=== PATIENT | female | born 1945 | race African-American/Black ===

== ENCOUNTER 2021-12-14 16:12 | Inpatient (IN) | payer OTHER, MEDICAID ==
[~2021-12-14] VITALS: Ht 160 cm; Wt 73.5 kg
[2021-12-14 16:57] LABS: BASOPHILS % 0.4 % (0.0-2.0); HEMATOCRIT. 33.3 % (36.0-48.0); HEMOGLOBIN. 11.5 g/dL (12.0-16.0); LYMPHOCYTES % 14.5 % (20.0-50.0); MEAN CORPUSCULAR HEMOGLOBIN 31.6 pg (28.0-32.0); MEAN CORPUSCULAR VOLUME 91.7 fL (81.0-99.0); MEAN PLATELET VOLUME 8.4 fl (7.4-10.4); NEUTROPHILS % 79.1 % (40.0-76.0); PLATELET 259 x1000/uL (130-400); RED BLOOD CELL COUNT 3.64 mill/uL (4.2-5.4); RED CELL DISTRIBUTION WIDTH 14.5 % (11.6-14.6)
[2021-12-14 17:04] LABS: CHLORIDE 108 mEq/L (98-107)
[2021-12-14 19:04] LABS: CLARITY URINE CLEAR (CLEAR); COLOR URINE DARK YELLOW (YELLOW); KETONES URINE NEGATIVE (NEGATIVE); LEUKOCYTE ESTERASE URINE 1+ (NEGATIVE); NITRITE URINE NEGATIVE (NEGATIVE); OCCULT BLOOD URINE NEGATIVE (NEGATIVE); PH URINE 5.5 (4.5-8.0); PROTEIN URINE NEGATIVE (NEGATIVE); SPECIFIC GRAVITY URINE 1.015 (1.005-1.030)
[2021-12-14] MEDS ORDERED: CEFTRIAXONE 1 G PREMIX 50 ML IV NR (21:00)
[2021-12-14 23:00] VITALS: BP 152/82
[2021-12-15] VITALS: BP 145/75
[2021-12-15 04:00] VITALS: BP 138/72
[2021-12-15] MEDS ORDERED: TOPUD MT (04:20)
[2021-12-15] MEDS ORDERED: AZAT50TA24 MT (04:26)
[2021-12-15] MEDS ORDERED: DOCU-150 PO (04:28)
[2021-12-15] MEDS ORDERED: ACETAMINOPHEN 325MG TABLET PO PRN (04:30)
[2021-12-15] MEDS ORDERED: BISA10SU62 RC ×2 (04:30)
[2021-12-15] MEDS ORDERED: BISACODYL 10MG SUPP RC PRN (04:30)
[2021-12-15] MEDS ORDERED: MINERAL OIL ENEMA 133ML PR PRN (04:30)
[2021-12-15] MEDS ORDERED: MAGNESIUM HYDROXIDE 400MG/5ML 30ML UDC PO PRN (04:30)
[2021-12-15] MEDS ORDERED: ONDANSETRON 4MG ODT PO PRN (04:30)
[2021-12-15] MEDS ORDERED: FERR325T6 MT (04:32)
[2021-12-15] MEDS ORDERED: FISH MT (04:33)
[2021-12-15] MEDS ORDERED: FEO PR (04:35)
[2021-12-15] MEDS ORDERED: MELA5TAB21 PO (04:41)
[2021-12-15] MEDS ORDERED: MULT-1146 MT (04:41)
[2021-12-15] MEDS ORDERED: GABA-529 PO (04:41)
[2021-12-15] MEDS ORDERED: MOM PO (04:41)
[2021-12-15] MEDS ORDERED: PRED2.5T4 MT (04:43)
[2021-12-15] MEDS ORDERED: ONDA4TAB11 PO (04:43)
[2021-12-15] MEDS ORDERED: RIVA20TA MT (04:47)
[2021-12-15] MEDS ORDERED: ROSU5TAB PO (04:47)
[2021-12-15] MEDS ORDERED: SENN-257 MT (04:47)
[2021-12-15 08:00] VITALS: BP 159/77
[2021-12-15 08:09] LABS: BASOPHILS % 0.6 % (0.0-2.0); EOSINOPHILS % 3.4 % (0.0-5.0); HEMATOCRIT. 31.4 % (36.0-48.0); LYMPHOCYTES % 18.6 % (20.0-50.0); MEAN CORPUSCULAR HEMOGLOBIN 31.9 pg (28.0-32.0); MEAN CORPUSCULAR VOLUME 91.1 fL (81.0-99.0); MEAN PLATELET VOLUME 8.4 fl (7.4-10.4); MONOCYTES % 7.7 % (2.0-8.0); NEUTROPHILS % 69.7 % (40.0-76.0); PLATELET 236 x1000/uL (130-400); RED BLOOD CELL COUNT 3.44 mill/uL (4.2-5.4); RED CELL DISTRIBUTION WIDTH 14.6 % (11.6-14.6)
[2021-12-15] MEDS: FISH OIL/OMEGA-3 FATTY ACIDS 1000MG CAPSULE PO SCH (08:18)
[2021-12-15] MEDS: AZATHIOPRINE 50MG TABLET PO SCH (08:19)
[2021-12-15] MEDS: SENNOSIDES 8.6MG TABLET PO SCH (08:20)
[2021-12-15] MEDS: MULTIVITAMINS,THER W-MINERALS TABLET PO SCH (08:20)
[2021-12-15] MEDS: GABAPENTIN 100MG CAPSULE PO SCH ×2 (08:20→17:10)
[2021-12-15] MEDS: FERROUS SULFATE 325MG TABLET PO SCH (08:20)
[2021-12-15] MEDS: PREDNISONE 5MG TABLET PO SCH (08:21)
[2021-12-15] MEDS: DOCUSATE SODIUM 100MG CAPSULE PO SCH (08:21)
[2021-12-15 08:47] LABS: CHLORIDE 109 mEq/L (98-107)
[2021-12-15] MEDS ORDERED: MEDICATION NOT ON FORMULARY EA (Prednisone 1 TAB) MT SCH (09:00)
[2021-12-15] MEDS ORDERED: MEDICATION NOT ON FORMULARY EA (Multivitamin (Multi Vitamin Daily) 1 TAB) MT SCH (09:00)
[2021-12-15 12:00] VITALS: BP 147/82
[2021-12-15 16:08] VITALS: BP_SYST 139; BP_SYST 142; BP_DIAS 72; BP_DIAS 74
[2021-12-15 20:00] VITALS: BP 158/90
[2021-12-15] MEDS: MELATONIN 3MG TABLET PO SCH (21:00)
[2021-12-15] MEDS ORDERED: RIVAROXABAN 20 MG TABLET PO SCH (21:00)
[2021-12-15] MEDS ORDERED: MEDICATION NOT ON FORMULARY EA (Rosuvastatin Calcium (Crestor) 5 MG) PO SCH (21:00)
[2021-12-15] MEDS: ATORVASTATIN CALCIUM 20MG TABLET PO SCH (22:45)
[2021-12-16] VITALS: BP 105/65
[2021-12-16 04:00] VITALS: BP 151/84
[2021-12-16 08:00] VITALS: BP 157/78
[2021-12-16] MEDS: FISH OIL/OMEGA-3 FATTY ACIDS 1000MG CAPSULE PO SCH (08:26)
[2021-12-16] MEDS: DOCUSATE SODIUM 100MG CAPSULE PO SCH (08:26)
[2021-12-16] MEDS: AZATHIOPRINE 50MG TABLET PO SCH (08:27)
[2021-12-16] MEDS: PREDNISONE 5MG TABLET PO SCH (08:27)
[2021-12-16] MEDS: FERROUS SULFATE 325MG TABLET PO SCH (08:27)
[2021-12-16] MEDS: SENNOSIDES 8.6MG TABLET PO SCH (08:27)
[2021-12-16] MEDS: MULTIVITAMINS,THER W-MINERALS TABLET PO SCH (08:29)
[2021-12-16] MEDS: GABAPENTIN 100MG CAPSULE PO SCH ×2 (10:06→17:39)
[2021-12-16 12:00] VITALS: BP 137/85
[2021-12-16 16:00] VITALS: BP 135/80
[2021-12-16] MEDS ORDERED: MAGNESIUM CITRATE 300ML SOLUTION PO NR (16:30)
[2021-12-16] MEDS: METOCLOPRAMIDE HCL 10MG/2ML VIAL IV SCH (17:39)
[2021-12-16] MEDS: RIVAROXABAN 20 MG TABLET PO SCH (17:43)
[2021-12-16] MEDS ORDERED: TOPUD MT (18:15)
[2021-12-16] MEDS ORDERED: ONDA4TAB50 PO (18:19)
[2021-12-16 20:00] VITALS: BP 147/85
[2021-12-16] MEDS: ATORVASTATIN CALCIUM 20MG TABLET PO SCH (20:44)
[2021-12-16] MEDS: MELATONIN 3MG TABLET PO SCH (20:52)
[2021-12-17] VITALS: BP 146/84
[2021-12-17] MEDS: METOCLOPRAMIDE HCL 10MG/2ML VIAL IV SCH ×4 (01:43→17:20)
[2021-12-17 04:00] VITALS: BP 137/83
[2021-12-17 08:00] VITALS: BP 141/75
[2021-12-17] MEDS: FERROUS SULFATE 325MG TABLET PO SCH (08:17)
[2021-12-17] MEDS: DOCUSATE SODIUM 100MG CAPSULE PO SCH (08:17)
[2021-12-17] MEDS: AZATHIOPRINE 50MG TABLET PO SCH (08:17)
[2021-12-17] MEDS: SENNOSIDES 8.6MG TABLET PO SCH (08:17)
[2021-12-17] MEDS: PREDNISONE 5MG TABLET PO SCH (08:17)
[2021-12-17] MEDS: GABAPENTIN 100MG CAPSULE PO SCH ×2 (08:17→17:19)
[2021-12-17] MEDS: MULTIVITAMINS,THER W-MINERALS TABLET PO SCH (08:17)
[2021-12-17] MEDS: FISH OIL/OMEGA-3 FATTY ACIDS 1000MG CAPSULE PO SCH (08:17)
[2021-12-17 12:00] VITALS: BP 139/74
[2021-12-17 16:00] VITALS: BP 144/79
[2021-12-17] MEDS: RIVAROXABAN 20 MG TABLET PO SCH (17:19)
[2021-12-17 20:00] VITALS: BP 131/72
[2021-12-17] MEDS: ATORVASTATIN CALCIUM 20MG TABLET PO SCH (20:51)
[2021-12-17] MEDS: MELATONIN 3MG TABLET PO SCH (20:57)
[2021-12-18] VITALS: BP 128/80
[2021-12-18] MEDS: METOCLOPRAMIDE HCL 10MG/2ML VIAL IV SCH ×5 (00:10→23:42)
[2021-12-18 04:15] VITALS: BP 137/82
[2021-12-18 07:47] LABS: FOLIC ACID (FOLATE) SERUM >20 ng/mL ng/mL (>5.38); VITAMIN B12 SERUM 788 pg/mL (211-911)
[2021-12-18 08:00] VITALS: BP 141/68
[2021-12-18] MEDS: AZATHIOPRINE 50MG TABLET PO SCH (08:47)
[2021-12-18] MEDS: GABAPENTIN 100MG CAPSULE PO SCH ×2 (08:47→16:41)
[2021-12-18] MEDS: SENNOSIDES 8.6MG TABLET PO SCH ×2 (08:48→09:00)
[2021-12-18] MEDS: MULTIVITAMINS,THER W-MINERALS TABLET PO SCH (08:48)
[2021-12-18] MEDS: PREDNISONE 5MG TABLET PO SCH (08:48)
[2021-12-18] MEDS: FISH OIL/OMEGA-3 FATTY ACIDS 1000MG CAPSULE PO SCH ×2 (08:48→09:00)
[2021-12-18] MEDS: FERROUS SULFATE 325MG TABLET PO SCH (08:48)
[2021-12-18] MEDS: DOCUSATE SODIUM 100MG CAPSULE PO SCH ×2 (08:48→09:00)
[2021-12-18 12:00] VITALS: BP 150/76
[2021-12-18 16:26] VITALS: BP 114/76
[2021-12-18] MEDS: RIVAROXABAN 20 MG TABLET PO SCH (16:41)
[2021-12-18 20:00] VITALS: BP 129/64
[2021-12-18] MEDS: ATORVASTATIN CALCIUM 20MG TABLET PO SCH (20:41)
[2021-12-18] MEDS: MELATONIN 3MG TABLET PO SCH (20:44)
[2021-12-19] VITALS: BP 125/57
[2021-12-19 04:00] VITALS: BP 122/69
[2021-12-19] MEDS: METOCLOPRAMIDE HCL 10MG/2ML VIAL IV SCH ×3 (05:31→17:31)
[2021-12-19 08:00] VITALS: BP 133/78
[2021-12-19] MEDS: SENNOSIDES 8.6MG TABLET PO SCH (08:14)
[2021-12-19] MEDS: PREDNISONE 5MG TABLET PO SCH (08:15)
[2021-12-19] MEDS: FISH OIL/OMEGA-3 FATTY ACIDS 1000MG CAPSULE PO SCH (08:15)
[2021-12-19] MEDS: DOCUSATE SODIUM 100MG CAPSULE PO SCH (08:15)
[2021-12-19] MEDS: FERROUS SULFATE 325MG TABLET PO SCH (08:15)
[2021-12-19] MEDS: MULTIVITAMINS,THER W-MINERALS TABLET PO SCH (08:15)
[2021-12-19] MEDS: GABAPENTIN 100MG CAPSULE PO SCH ×2 (08:15→16:21)
[2021-12-19] MEDS: AZATHIOPRINE 50MG TABLET PO SCH (08:15)
[2021-12-19 12:00] VITALS: BP 157/88
[2021-12-19 13:49] VITALS: BP 157/88
[2021-12-19 16:00] VITALS: BP 125/49
[2021-12-19] MEDS: RIVAROXABAN 20 MG TABLET PO SCH (16:21)
== END 2021-12-19 19:12 | DRG 73 ==
LOC: ER 16:12 → 8WST 20:32 → EDBEDREQTM 20:49 → EDBEDREQ 20:49 → EDBEDREQSVC 20:49 → ENRESERV 21:02
PROVIDERS: ADMIT Internal Medicine; ATTEND Internal Medicine
DX: G90.9 Disorder of the autonomic nervous system, unspecified (principal); G93.41 Metabolic encephalopathy; N39.0 Urinary tract infection, site not specified; I50.30 Unspecified diastolic (congestive) heart failure; E87.2 Acidosis; E44.1 Mild protein-calorie malnutrition; I95.9 Hypotension, unspecified; R26.81 Unsteadiness on feet; K59.09 Other constipation; D64.9 Anemia, unspecified; R53.81 Other malaise; R74.01 Elevation of levels of liver transaminase levels; E11.9 Type 2 diabetes mellitus without complications; Z60.2 Problems related to living alone; I11.0 Hypertensive heart disease with heart failure; Z79.01 Long term (current) use of anticoagulants; Z86.711 Personal history of pulmonary embolism; Z86.73 Personal history of transient ischemic attack (TIA), and cerebral infarction without residual deficits; Z79.899 Other long term (current) drug therapy; Z99.3 Dependence on wheelchair; Z68.28 Body mass index [BMI] 28.0-28.9, adult
CPT/HCPCS: 36415; 71045; 74018; 80053; 80061; 81003; 82140; 82607; 82746; 83036; 83605; 84145; 84443; 84484; 85025; 92610; 93005; 93306; 93970; 97162; 97166; 97530; 99285; A4565; J0696; J2765; J7500; J7512